=== PATIENT | male | born 1980 | race Caucasian/White ===

== ENCOUNTER 2023-02-23 14:47 | Emergency (ER) | payer BC, SELFPAY ==
--- NOTE | 2023-02-23 14:57 | ED.EXTPRO ---
HPI - Extremity Problem General Chief complaint: Extremity Problem,Nontraumatic Stated complaint: legs swelling Time Seen by Provider: 02/23/23 14:52 Source: patient Mode of arrival: ambulatory Limitations: no limitations History of Present Illness HPI Narrative: Bhavik is a 42-year-old male patient presenting to clinic today with complaint of bilateral leg swelling for several weeks. He reports no shortness of breath or chest pain. Thinks it may be due to his amlodipine. No fever or chills. Related Data Home Medications Medication Instructions Recorded Confirmed amlodipine 10 mg tablet 10 mg PO DAILY 02/23/23 02/23/23 Allergies Allergy/AdvReac Type Severity Reaction Status Date / Time No Known Allergies Allergy Verified 02/23/23 15:12 Review of Systems Review of Systems: Pertinent positives per HPI. Patient denies any fever, chills, rash, headache, visual changes, dizziness, cough, runny nose, sore throat, shortness of breath, chest pain, palpitations, nausea, vomiting, diarrhea, constipation, abdominal pain, or any urinary issues. PMFSH Comments At the time of my signature, I reviewed and agree with the nursing past medical, surgical, social, and family history. There is no relevant family history pertinent to the patient complaint. Exam Narrative: General: Well-developed, well nourished, in no apparent distress Head: Normocephalic, atraumatic. Cardio: Regular rate and rhythm, s1 and s2 normal, no murmur appreciated. Resp: Clear to auscultation bilaterally, no rhonchi, rales, wheezing or rubs. Musculoskeletal: No deformity, non-tender to palpation, grossly normal range of motion, muscle strength strong and equal, peripheral pulse strong, 2+ edema in bilateral lower extremities, brown/red pigmentation to the lower [id number] insufficiency skin changes, no cyanosis, normal gait and station Course Course Emergency Course: Portions of this record may have been created with voice recognition software. Level of Care: Express Care Visit Vital Signs Vital signs: Vital Signs Temperature 37.0 C 02/23/23 15:05 Pulse Rate 84 02/23/23 15:05 Respiratory Rate 18 02/23/23 15:05 Blood Pressure 153/95 H 02/23/23 15:05 Pulse Oximetry 98 02/23/23 15:05 Oxygen Delivery Room Air 02/23/23 15:05 Temperature 37.0 C 02/23/23 15:05 Pulse Rate 84 02/23/23 15:05 Respiratory Rate 18 02/23/23 15:05 Blood Pressure 153/95 H 02/23/23 15:05 Pulse Oximetry 98 02/23/23 15:05 Oxygen Delivery Room Air 02/23/23 15:05 Vital signs reviewed MDM - Extremity (Nontraumatic) MDM Narrative Medical decision making narrative: At the time of visit patient is resting comfortably on the exam table. I suspect patient has venous insufficiency. Discussed supportive measures and he voiced understanding of the discharge instructions and agrees to treatment plan. Differential Diagnosis Differential diagnosis: Likely cellulitis, superficial thrombophlebitis, lower extremity edema, deep vein thrombosis of lower extremity and other (Venous insufficiency) Discharge Plan Discharge Clinical Impression: Venous insufficiency Patient Disposition: Home, Self-Care Condition: Stable Instructions: Antibiotic Form, Venous Insufficiency (DC) Additional Instructions: Increase fluids and stay well hydrated Elevate your lower extremities as discussed May wear compression stockings during the day to help alleviate swelling and take them off at nighttime when you go to bed Norvasc could be causing leg swelling-need to discuss the swelling with your PCP to determine if you can change your blood pressure medication-may benefit from blood pressure/diuretic combo medication If symptoms worsen recommend going to the emergency room for further evaluation-chest pain, shortness of breath, weakness, confusion, or abdominal pain Follow-up with your PCP in 1 week Prescriptions: No Action amlodipi
[2023-02-23 15:05] VITALS: BP 153/95; PULSE 84; RESP 18; TEMP 37; O2SAT 98
== END 2023-02-23 15:16 | disposition home or self-care (01) ==
PROVIDERS: Emergency Provider Nurse Practitioner Family
DX: I87.2 Venous insufficiency (chronic) (peripheral) (principal)
CPT/HCPCS: 99211; G0463

== ENCOUNTER 2023-08-03 12:05 | Emergency (ER) | payer BC, SELFPAY ==
[2023-08-03 12:19] VITALS: BP 142/96; PULSE 82; RESP 18; TEMP 36.8; O2SAT 97
--- NOTE | 2023-08-03 13:47 | ED.GENADULT ---
HPI - General Adult General Chief complaint: Skin/Abscess/Foreign Body Stated complaint: Left ear/rash across chest Time Seen by Provider: 08/03/23 13:47 Source: patient, RN notes reviewed and old records reviewed Mode of arrival: ambulatory Limitations: no limitations History of Present Illness HPI narrative: 43 year old male male presents to express care with pain to his left ear post cold symptoms of 10 days. 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 Patient states that for the past 2 days he has also noted a rash across his chest some on upper arms and one spot on his left thigh. Patient states no change in body products or contact with anyone else with similar rash.Patient reports no pain or itching to rash, has used hydrocortisone ointment. MD complaint: left ear pain and rash on chest, upper arms and on left thigh Onset (ago): day(s) (2) Severity scale (1-10): 2 Quality: aching Treatments prior to arrival: other (hydrocortisone cream to rash) Related Data Allergies Allergy/AdvReac Type Severity Reaction Status Date / Time No Known Allergies Allergy Verified 08/03/23 12:51 Review of Systems Review of Systems: CONSTITUTIONAL: Denies fever, chills, or sweats. EYES: Denies visual changes, redness, or discharge. ENT:Reports some rhinorrhea, congestion,no sore throat, reports left otalgia hearing muffled CARDIOVASCULAR: Denies chest pain, palpitations, or edema. RESPIRATORY: Denies cough or dyspnea. GASTROINTESTINAL: Denies abdominal pain, nausea, vomiting, or diarrhea. GENITOURINARY: Denies dysuria or hematuria. SKIN:Reports rash to upper chest upper forearms and one spot on left thigh no itching or pain MUSCULOSKELETAL: Denies back pain, joint pain, or myalgia. NEUROLOGIC: Denies headache, numbness, or weakness. PSYCHIATRIC: Denies anxiety or depression. All systems reviewed & are unremarkable except as noted in HPI and below PMFSH Past Medical History Medical History (Updated 08/04/23 @ 13:45 by Melania Su NP) Hypertension Social History Social History (Updated 08/04/23 @ 13:44 by Melania Su NP) Smoking status: Never smoker Alcohol intake: current Alcohol use details: social Substance use type: does not use Gender identity (if verbalized by the patient): Male Comments At time of signature, agree with nursing past medical, surgical, social and family history. There is no relevant family history pertinent to the presenting complaint Exam Narrative: GENERAL: Well-appearing, well-nourished,obese, and in no acute distress. HEAD: Normocephalic, atraumatic. EYES: PERRLA and EOMI. ENT: Nares clear,clear rhinorrhea no epistaxis. Mucous membranes moist.Right TM normal with good light reflex, Left TM red and bulging, throat pink with no lesions or swelling, some post nasal drainage noted. NECK: Supple. no lymphadenopathy CHEST: Clear to auscultation. No respiratory distress.no acute cough noted SAO2 97% on room air HEART: Regular rate and rhythm. No murmur heard. Normal peripheral pulses. ABDOMEN: Soft, nontender, nondistended, normal active bowel sounds. EXTREMITIES: Normal range of motion. No edema. SKIN: Warm, dry, Rash circular raised irregular with scaly flaky centers noted with no drainage, small red satellite lesions noted on arms, NEURO: No focal deficits. Alert and oriented x3. Course Course Emergency Course: Patient is aware of diagnosis, understands and agrees to treatment plan.? Anticipatory guidance given.? Patient agrees to follow-up as directed and is aware of reasons to seek care at the emergency department. Portions of this record may have been created with voice recognition software Level of Care: Express Care Visit Vital Signs Vital signs: Vital Signs Temperature 36.8 C 08/03/23 12:19 Puls
== END 2023-08-03 14:05 | disposition home or self-care (01) ==
PROVIDERS: Emergency Provider Registered Nurse
DX: L01.00 Impetigo, unspecified (principal); H66.92 Otitis media, unspecified, left ear; I10 Essential (primary) hypertension
CPT/HCPCS: 99213; G0463